=== PATIENT | female | born 1980 | race Caucasian/White ===

== ENCOUNTER 2017-05-10 08:52 | Emergency (ER) | payer OTHER, BC ==
[2017-05-10 09:11] VITALS: TEMP 98.6; BMI 21.9
--- NOTE | 2017-05-10 09:19 | PDOC ---
Attending Attestation - HPI HPI: 05/10/17 10:10 36 F with a PMH of Daisy, presents to the ED for palpitations, SOB, and chest pain/ pressure for 4 weeks. She states the episodes usually occur when she sleeps. She had an EKG, echo, and wore a holter 2 weeks ago that revealed PVCs and PACs. 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 She reports she had breast implants placed 3.5 years ago and removed 3 months ago. Pt denies F/C, n/v/d, leg swelling or tenderness, headache, or urinary complaints. - Physicial Exam PE: 05/10/17 10:10 GENERAL: Awake, alert, and fully oriented, in no acute distress HEAD: No signs of trauma EYES: PERRLA, EOMI, sclera anicteric, conjunctiva clear ENT: Auricles normal inspection, hearing grossly normal, nares patent, oropharynx clear without exudates. Moist mucosa NECK: Normal ROM, supple, no lymphadenopathy, JVD, or masses LUNGS: Breath sounds equal, clear to auscultation bilaterally. No wheezes, and no crackles HEART: Regular rate and rhythm, normal S1 and S2, no murmurs, rubs or gallops ABDOMEN: Soft, nontender, normoactive bowel sounds. No guarding, no rebound. No masses EXTREMITIES: Normal range of motion, no edema. No clubbing or cyanosis. No cords, erythema, or tenderness NEUROLOGICAL: Cranial nerves II through XII grossly intact. Normal speech, normal gait SKIN: Warm, Dry, normal turgor, no rashes or lesions noted. <Mel Chatterjee - Last Filed: 05/10/17 10:10> - Resident Resident Name: Rashaad Ayon - ED Attending Attestation I have performed the following: I have examined & evaluated the patient, The case was reviewed & discussed with the resident, I agree w/resident's findings & plan, Exceptions are as noted - Medical Decision Making 05/10/17 09:19 I, Dr. Aubrie Diallo, DO, attest that this document has been prepared under my direction and personally reviewed by me in its entirety. I further attest, that it accurately reflects all work, treatment, procedures and medical decision -making performed by me. 05/10/17 09:55 a/p: 36yo female with palpitations and sob -has worn a halter from [employer] -has had echo at [facility] -hx of pvcs and pacs -will check labs, ekg, cxr, thyroid -will monitor and reassess 05/10/17 11:46 thyroid function normal dimer negative labs reviewed without acute findings cxr clear ekg stable pending trop 05/10/17 12:14 trop negative <Aubrie Diallo - Last Filed: 05/10/17 12:15> Heart Score/ECG Review - ECG Intrepretation Comment:: 05/10/17 09:29 sinus at 69, nl axis, nl interval, t wave flattening diffusely, no acute st changes <Aubrie Diallo - Last Filed: 05/10/17 12:15>
--- NOTE | 2017-05-10 09:23 | PDOC ---
History of Present Illness - General Chief Complaint: Chest Pain Stated Complaint: CHEST PAIN Time Seen by Provider: 05/10/17 09:16 - History of Present Illness Initial Comments: 05/10/17 09:21 36 yo F with h/o Hashimotos thyroiditis who presents with chest pain. Patient reports epigastria and left sided chest pain this AM, while sleeping. Reports pressure like chest pain, palpitations, and SOB ( now resolved). Denies Joiner. Ongoing symptoms for the past month .Recent 2 week Holter monitor test negative. Denies N/V, F/C, cough, wheezing, hemoptysis, abdominal pain, urinary complaints, diarrhea, lightheadedness, leg swelling, LOC, weakness. Recently had breast implant removal ( 02/21). Denies cardiac history, h/o PE/DVT, recent immobilization or trauma, hypercoagualble disorder. Past History - Past Medical History Allergies/Adverse Reactions: Allergies Allergy/AdvReac Type Severity Reaction Status Date / Time No Known Allergies Allergy Verified 05/10/17 09:01 CVA: No COPD: No Thyroid Disease: Yes (hx Zaida) - Immunization History Immunization Up to Date: Yes - Suicide/Smoking/Psychosocial Hx Smoking History: Never smoked Have you smoked in the past 12 months: No Information on smoking cessation initiated: No Hx Alcohol Use: No Drug/Substance Use Hx: No Substance Use Type: None Review of Systems - Review of Systems Comments:: 05/10/17 09:20 GENERAL/CONSTITUTIONAL: No fever or chills. No weakness. HEAD, EYES, EARS, NOSE AND THROAT: No change in vision. No ear pain or discharge. No sore throat.- CARDIOVASCULAR: + chest pain and shortness of breath RESPIRATORY: No cough, wheezing, or hemoptysis. GASTROINTESTINAL: No nausea, vomiting, diarrhea or constipation. GENITOURINARY: No dysuria, frequency, or change in urination. MUSCULOSKELETAL: No joint or muscle swelling or pain. No neck or back pain. SKIN: No rash NEUROLOGIC: No headache, vertigo, loss of consciousness, or change in strength/ sensation. ENDOCRINE: No increased thirst. No abnormal weight change HEMATOLOGIC/LYMPHATIC: No anemia, easy bleeding, or history of blood clots. ALLERGIC/IMMUNOLOGIC: No hives or skin allergy. *Physical Exam - Vital Signs Last Vital Signs Temp Pulse Resp BP Pulse Ox 98.6 F 71 17 102/67 100 05/10/17 09:01 05/10/17 09:01 05/10/17 09:01 05/10/17 09:01 05/10/17 09:01 - Physical Exam Comments: 05/10/17 09:20 GENERAL: Awake, alert, and fully oriented, in no acute distress HEAD: No signs of trauma, normocephalic, atraumatic EYES: PERRLA, EOMI, sclera anicteric, conjunctiva clear ENT: Hearing grossly normal, nares patent, oropharynx clear without exudates. Moist mucosa NECK: Normal ROM,no JVD, or masses LUNGS: No distress, speaks full sentences, clear to auscultation bilaterally HEART: Regular rate and rhythm, normal S1 and S2, no murmurs, rubs or gallops, peripheral pulses normal and equal bilaterally. ABDOMEN: Soft, epigastric ttp, normoactive bowel sounds. No guarding, no rebound. No masses. Neg CVA ttp. Neg suprapubic ttp. EXTREMITIES : Normal inspection, Normal range of motion, no edema. No clubbing or cyanosis. SKIN: Warm, Dry, normal turgor, no rashes or lesions noted. ED Treatment Course - LABORATORY CBC & Chemistry Diagram: 05/10/17 10:05 05/10/17 10:43 Medical Decision Making - Medical Decision Making 05/10/17 09:21 36 yo F with h/o Hashimotos thyroiditis who presents with acute onset of epigastria and left sided chest pain/pressure, SOB, and palpitations this AM, while sleeping.Denies N/V, F/C, cough, Joiner, wheezing, hemoptysis, abdominal pain , urinary complaints, diarrhea, lightheadedness, leg swelling, LOC, weakness. Recent 2 week Holter monitor and echo test negative. Recently had breast implant removal ( 02/21). Denies cardiac history, h/o PE/DVT, recent immobilization or trauma, hypercoagualble disorder. Although low risk wellls criteria, will consider PE in setting of recent surgery ( 03/02). Will also consider thyrotoxicosis given h/o Hashimotors and clinical presentation. ACS/HI r/o. ED Course: CBC, CMP, Lipase, Cardiac Profile, TSH, Free T4, serum preg UA EKG, CXR EKG: NSR with absent TASHIA, STD, or TWI. Normal interval duration. 05/10/17 11:01 CBC: Unremarkable BHCG: Neg D-Dimer: 393 05/10/17 11:10 CXR: No acute chest pathology. 05/10/17 11:49 CBC: Unremarkable Trop: Neg Pt. is stable for d/c with return precautions. Advised to f/u with PMD. *DC/Admit/Observation/Transfer Diagnosis at time of Disposition: Atypical chest pain - Discharge Dispostion Condition at time of disposition: Stable - Referrals - Patient Instructions Printed Discharge Instructions: DI for Atypical Chest Pain Additional Instructions: Please return to the emergency department with any new or worsening symptoms or concerns. Please follow up with your primary care physician within 24-72 hours. - Post Discharge Activity - Attestations Physician Attestion: 05/10/17 09:22 I attest to the information provided in this note.
[2017-05-10 10:17] LABS: BASO % 0.7 % (0-2.0); EOS % 1.8 % (0-4.5); HEMATOCRIT 41.1 % (32.4-45.2); HEMOGLOBIN 13.4 GM/dL (10.7-15.3); LYMPH % 17.9 % (8-40); MCH 27.6 pg (25.7-33.7); MCHC 32.6 g/dl (32.0-36.0); MEAN CELL VOLUME 84.6 fl (80-96); MEAN PLT VOLUME 7.9 fl (7.5-11.1); MONO % 6.6 % (3.8-10.2); PLATELET COUNT 212 K/MM3 (134-434); RBC 4.86 M/mm3 (3.60-5.2); RDW 14.5 % (11.6-15.6); WHITE BLOOD COUNT 5.3 K/mm3 (4.0-10.0)
[2017-05-10 11:43] LABS: ALBUMIN 4.1 g/dl (3.4-5.0); ALK PHOS 70 U/L (45-117); ANION GAP 6 (8-16); BILIRUBIN,TOTAL 0.4 mg/dL (0.2-1.0); BLOOD UREA NITROGEN 12 mg/dL (7-18); CALCIUM 8.7 mg/dL (8.5-10.1); CHLORIDE 106 mmol/L (98-107); CO2 29 mmol/L (21-32); CREATININE 0.8 mg/dL (0.55-1.02); GLUCOSE,RANDOM 95 mg/dL (74-106); POTASSIUM 3.9 mmol/L (3.5-5.1); SGOT/AST 11 U/L (15-37); SGPT/ALT 15 U/L (12-78); SODIUM 141 mmol/L (136-145); TOT PROT 7.3 g/dl (6.4-8.2)
[2017-05-10 12:32] VITALS: BP 122/78; PULSE 78
--- NOTE | 2017-05-11 12:40 | EKG ---
Test Reason : Blood Pressure : / mmHG Vent. Rate : 069 BPM Atrial Rate : 069 BPM P-R Int : 130 ms QRS Dur : 104 ms QT Int : 420 ms P-R-T Axes : 060 005 012 degrees QTc Int : 450 ms NORMAL SINUS RHYTHM INCOMPLETE RIGHT BUNDLE BRANCH BLOCK BORDERLINE ECG NO PREVIOUS ECGS AVAILABLE BASELINE ARTIFACT Confirmed by ANDREW CASTANO, ALEJO ([id number]) on 05/11/2017 12:39:49 PM Referred By: Confirmed By:ALEJO MORALES MD
== END 2017-05-10 12:32 | disposition home or self-care (01) ==
LOC: JER 08:52
DX: R07.89 Other chest pain (principal); E06.3 Autoimmune thyroiditis
CPT/HCPCS: 36415; 71045-TC; 80053; 82550; 84439; 84443; 84484; 84703; 85025; 85379; 93005; 93010; 99284-25

== ENCOUNTER 2017-05-28 01:42 | Emergency (ER) | payer OTHER, BC ==
[2017-05-28 03:08] VITALS: BMI 21.9
--- NOTE | 2017-05-28 03:14 | PDOC ---
History of Present Illness - General History Source: Patient Exam Limitations: No Limitations - History of Present Illness Initial Comments: 05/28/17 03:30 The patient is a 36 year old female, with a significant past medical history of hashimotos disease (TFTs normalized for a long time), who presents to the emergency department with palpitations for one month with 3 days of right arm swelling. The patient states she is being followed by cardiologists in [place] and reports she has been wearing a holter monitor since the onset of palpitations. She states the palpitations occur while at rest, as well as, when she is walking around. She states she feels a heaviness to her right arm and a scattered swollen sensation, most prominent to her right elbow. Secondarily, the patient reports an unintentional 16 lb weight loss over the past 3 weeks. The patient denies recent travels or sick contacts. The patient denies use of oral contraceptives. The patient denies chest pain, shortness of breath, headache and dizziness. The patient denies fever, chills, nausea, vomit, diarrhea and constipation. The patient denies dysuria, frequency, urgency and hematuria. Allergies: NKDA <Bridget Avila - Last Filed: 05/28/17 05:47> <Nery Caceres - Last Filed: 05/28/17 10:42> <[employer] Sterling - Last Filed: 05/28/17 13:00> - General History Source: Patient <Daniel Price - Last Filed: 05/28/17 19:23> - General Chief Complaint: Pain Stated Complaint: R ARM PAIN Time Seen by Provider: 05/28/17 03:09 Past History <Bridget Avila - Last Filed: 05/28/17 05:47> <Nery Caceres - Last Filed: 05/28/17 10:42> <[employer]upo Sterling - Last Filed: 05/28/17 13:00> - Past Medical History CVA: No COPD: No Thyroid Disease: Yes (hx Zaida) - Immunization History Immunization Up to Date: Yes - Suicide/Smoking/Psychosocial Hx Smoking History: Never smoked Have you smoked in the past 12 months: No Information on smoking cessation initiated: No Hx Alcohol Use: No Drug/Substance Use Hx: No Substance Use Type: None <Daniel Price - Last Filed: 05/28/17 19:23> - Past Medical History Allergies/Adverse Reactions: Allergies Allergy/AdvReac Type Severity Reaction Status Date / Time No Known Allergies Allergy Verified 05/28/17 03:04 Home Medications: Ambulatory Orders levoFLOXacin [Levaquin -] 500 mg PO DAILY #7 tablet 05/28/17 Review of Systems - Review of Systems Able to Perform ROS?: Yes Comments:: 05/28/17 03:30 CONSTITUTIONAL: Absent: fever, chills, diaphoresis, generalized weakness, malaise, loss of appetite HEENT: Absent: rhinorrhea, nasal congestion, throat pain, throat swelling, difficulty swallowing, mouth swelling, ear pain, eye pain, visual Changes CARDIOVASCULAR: (+) palpitations,Absent: chest pain, syncope, irregular heart rate, lightheadedness, peripheral edema RESPIRATORY: Absent: cough, shortness of breath, dyspnea with exertion, orthopnea, wheezing, stridor, hemoptysis GASTROINTESTINAL: Absent: abdominal pain, abdominal distension, nausea, vomiting, diarrhea, constipation, melena, hematochezia GENITOURINARY: Absent: dysuria, frequency, urgency, hesitancy, hematuria, flank pain, genital pain MUSCULOSKELETAL: (+) right elbow and forearm swelling. Absent: myalgia, arthralgia, SKIN: Absent: rash, itching, pallor HEMATOLOGIC/IMMUNOLOGIC: Absent: easy bleeding, easy bruising, lymphadenopathy, frequent infections ENDOCRINE: Absent: unexplained weight gain, unexplained weight loss, heat intolerance, cold intolerance NEUROLOGIC: Absent: headache, focal weakness or paresthesias, dizziness, unsteady gait, seizure, mental status changes, bladder or bowel incontinence PSYCHIATRIC: Absent: anxiety, depression, suicidal or homicidal ideation, hallucinations. <Bridget Avila - Last Filed: 05/28/17 05:47> *Physical Exam - Vital Signs Last Vital Signs Temp Pulse Resp BP Pulse Ox 98.4 F 79 20 112/66 100 05/28/17 03:05 05/28/17 03:05 05/28/17 03:05 05/28/17 03:05 05/28/17 03:05 - Physical Exam Comments: 05/28/17 03:30 GENERAL: Well developed, well nourished. Awake and alert. No acute distress. HEENT: Normocephalic, atraumatic. PERRLA, EOMI. No conjunctival pallor. Sclera are non- icteric. Moist mucous membranes. Oropharynx is clear. NECK: Supple. Full ROM. No JVD. Carotid pulses 2+ and symmetric, without bruits. No thyromegaly. No lymphadenopathy. CARDIOVASCULAR: Regular rate and rhythm. No murmurs, rubs, or gallops. Distal pulses are 2+ and symmetric. PULMONARY: No evidence of respiratory distress. Lungs clear to auscultation bilaterally. No wheezing, rales or rhonchi. ABDOMINAL: Soft. Non-tender. Non-distended. No rebound or guarding. No organomegaly. Normoactive bowel sounds. MUSCULOSKELETAL Normal range of motion at all joints. No bony deformities or tenderness. No CVA tenderness. EXTREMITIES: (+) Minimal swelling to right elbow. Very mild swelling to medial aspect of right forearm. No erythema, increased warmth or signs of cellulitis. No cyanosis. No clubbing. No calf tenderness. SKIN: Warm and dry. Normal capillary refill. No rashes. No jaundice. NEUROLOGICAL: Alert, awake, appropriate. Cranial nerves 2-12 intact. Normoreflexic in the upper and lower extremities. Normal speech. Toes are down-going bilaterally. Gait is normal without ataxia. PSYCHIATRIC: Cooperative. Good eye contact. Appropriate mood and affect. <Bridget Avila - Last Filed: 05/28/17 05:47> - Vital Signs Last Vital Signs Temp Pulse Resp BP Pulse Ox 98.2 F 87 18 125/69 98 05/28/17 08:30 05/28/17 08:30 05/28/17 08:30 05/28/17 08:30 05/28/17 08:30 <Nery Caceres - Last Filed: 05/28/17 10:42> - Vital Signs Last Vital Signs Temp Pulse Resp BP Pulse Ox 98.4 F 79 20 112/66 100 05/28/17 03:05 05/28/17 03:05 05/28/17 03:05 05/28/17 03:05 05/28/17 03:05 <Grupo Sterling - Last Filed: 05/28/17 13:00> - Vital Signs Last Vital Signs Temp Pulse Resp BP Pulse Ox 98.4 F 79 20 112/66 100 05/28/17 03:05 05/28/17 03:05 05/28/17 03:05 05/28/17 03:05 05/28/17 03:05 <Daniel Price - Last Filed: 05/28/17 19:23> Heart Score/ECG Review - ECG Intrepretation Comment:: 05/28/17 03:31 EKG was read by Dr. Price at 2:28 Impression: Normal sinus rhythm. Possible left atrial enlargement. Left axis deviation. Pulmonary disease pattern. <Bridget Avila - Last Filed: 05/28/17 05:47> ED Treatment Course - LABORATORY CBC & Chemistry Diagram: 05/28/17 03:30 05/28/17 03:30 - RADIOLOGY Radiograph Interpretation: DATE OF SERVICE: 2017-05-28 05:08:03 IMAGES: 684 EXAM: CT angiogram chest with contrast and 3-D angiographic reconstructions HISTORY: 36 year old female evaluate for pulmonary embolism. CONTRAST: 100.4 mL Omnipaque 350 intravenous contrast TECHNIQUE: Following IV contrast administration thin axial images were obtained through the chest for pulmonary artery evaluation by pulmonary embolism protocol with images transmitted to a remote workstation for 3-D post-processing included coronal and sagittal reformatted 3- D MIP images which were permanently stored in the patient medical record PACS. COMPARISON: None. FINDINGS: No large central pulmonary embolism. Evaluation of the distal segmental branches are limited by artifact. No aortic aneurysm or dissection. Heart size within normal limits. Basilar atelectasis. No pleural effusion. No pneumothorax. Limited evaluation upper abdomen appears unremarkable. Bones appear unremarkable. IMPRESSION: No large central pulmonary embolism. Wu Hanks MD 05/28/2017 05:43 EST <Bridget Avila - Last Filed: 05/28/17 05:47> - LABORATORY CBC & Chemistry Diagram: 05/28/17 03:30 05/28/17 03:30 - ADDITIONAL ORDERS Additional order review: Laboratory Results 05/28/17 05/28/17 05/28/17 03:44 03:30 03:30 PT with INR INR D-Dimer Sodium Potassium Chloride Carbon Dioxide Anion Gap BUN Creatinine Creat Clearance w eGFR Random Glucose Calcium Total Bilirubin AST ALT Alkaline Phosphatase Creatine Kinase Troponin I Total Protein Albumin TSH 2.23 Serum , Qual Negative Urine Color Yellow Urine Appearance Slcloudy Urine pH 5.0 Ur Specific [place] 1.028 Urine Protein Negative Urine Glucose (UA) Negative Urine Ketones Trace H Urine Blood Negative Urine Nitrite Negative Urine Bilirubin Negative Urine Urobilinogen Negative Ur Leukocyte Esterase 3+ H Urine WBC (Auto) 40 Urine RBC (Auto) 33 Ur Epithelial Cells Few Urine Mucus Many 05/28/17 05/28/17 03:30 03:30 PT with INR 12.30 H INR 1.09 D-Dimer 568 H Sodium 138 Potassium 3.7 Chloride 106 Carbon Dioxide 25 Anion Gap 7 L BUN 17 Creatinine 0.7 Creat Clearance w eGFR > 60 Random Glucose 90 Calcium 8.8 Total Bilirubin 0.4 AST 9 L ALT 12 Alkaline Phosphatase 67 Creatine Kinase 37 Troponin I < 0.02 Total Protein 7.4 Albumin 4.3 TSH Serum , Qual Urine Color Urine Appearance Urine pH Ur Specific [place] Urine Protein Urine Glucose (UA) Urine Ketones Urine Blood Urine Nitrite Urine Bilirubin Urine Urobilinogen Ur Leukocyte Esterase Urine WBC (Auto) Urine RBC (Auto) Ur Epithelial Cells Urine Mucus 05/28/17 03:30 RBC 4.69 MCV 84.6 MCHC 32.6 RDW 14.3 MPV 7.8 Neutrophils % 67.5 Lymphocytes % 21.8 D Monocytes % 8.3 Eosinophils % 1.9 Basophils % 0.5 - Medications Given in the ED: ED Medications Discontinued Medications Generic Name Dose Route Start Last Admin Trade Name Tomq PRN Reason Stop Dose Admin Sodium Chloride 1,000 mls @ 1,000 mls/hr 05/28/17 05:54 05/28/17 06:18 Normal Saline - IV 05/28/17 06:53 1,000 mls/hr ASDIR STA Administration Levofloxacin 500 mg 05/28/17 05:53 05/28/17 06:29 Levaquin - PO 05/28/17 05:54 Not Given ONCE ONE <Nery Caceres - Last Filed: 05/28/17 10:42> - LABORATORY CBC & Chemistry Diagram: 05/28/17 03:30 05/28/17 03:30 - ADDITIONAL ORDERS Additional order review: Laboratory Results 05/28/17 05/28/17 05/28/17 03:44 03:30 03:30 PT with INR INR D-Dimer Sodium Potassium Chloride Carbon Dioxide Anion Gap BUN Creatinine Creat Clearance w eGFR Random Glucose Calcium Total Bilirubin AST ALT Alkaline Phosphatase Creatine Kinase Troponin I Total Protein Albumin TSH 2.23 Serum , Qual Negative Urine Color Yellow Urine Appearance Slcloudy Urine pH 5.0 Ur Specific [place] 1.028 Urine Protein Negative Urine Glucose (UA) Negative Urine Ketones Trace H Urine Blood Negative Urine Nitrite Negative Urine Bilirubin Negative Urine Urobilinogen Negative Ur Leukocyte Esterase 3+ H Urine WBC (Auto) 40 Urine RBC (Auto) 33 Ur Epithelial Cells Few Urine Mucus Many 05/28/17 05/28/17 03:30 03:30 PT with INR 12.30 H INR 1.09 D-Dimer 568 H Sodium 138 Potassium 3.7 Chloride 106 Carbon Dioxide 25 Anion Gap 7 L BUN 17 Creatinine 0.7 Creat Clearance w eGFR > 60 Random Glucose 90 Calcium 8.8 Total Bilirubin 0.4 AST 9 L ALT 12 Alkaline Phosphatase 67 Creatine Kinase 37 Troponin I < 0.02 Total Protein 7.4 Albumin 4.3 TSH Serum , Qual Urine Color Urine Appearance Urine pH Ur Specific [place] Urine Protein Urine Glucose (UA) Urine Ketones Urine Blood Urine Nitrite Urine Bilirubin Urine Urobilinogen Ur Leukocyte Esterase Urine WBC (Auto) Urine RBC (Auto) Ur Epithelial Cells Urine Mucus 05/28/17 03:30 RBC 4.69 MCV 84.6 MCHC 32.6 RDW 14.3 MPV 7.8 Neutrophils % 67.5 Lymphocytes % 21.8 D Monocytes % 8.3 Eosinophils % 1.9 Basophils % 0.5 - Medications Given in the ED: ED Medications Discontinued Medications Generic Name Dose Route Start Last Admin Trade Name Freq PRN Reason Stop Dose Admin Sodium Chloride 1,000 mls @ 1,000 mls/hr 05/28/17 05:54 05/28/17 06:18 Normal Saline - IV 05/28/17 06:53 1,000 mls/hr ASDIR STA Administration Levofloxacin 500 mg 05/28/17 05:53 05/28/17 06:29 Levaquin - PO 05/28/17 05:54 Not Given ONCE ONE <Grupo Sterling - Last Filed: 05/28/17 13:00> - LABORATORY CBC & Chemistry Diagram: 05/28/17 03:30 05/28/17 03:30 <Daniel Price - Last Filed: 05/28/17 19:23> Medical Decision Making - Medical Decision Making 05/28/17 10:23 Patient endorsed to me to follow-up right upper extremity Doppler ultrasound. There is no evidence of DVT. Patient followed up by cardiology with a Holter monitor in place. Urinalysis reveals pyuria with presence of red cells. Levaquin has been prescribed. Will discharge with outpatient follow-up. 05/28/17 10:41 pt c/o cp. will obtain ekg, repeat cardiac profile 05/28/17 13:00 Repeat EKG shows nonspecific T-wave changes probably due to lead placement unlikely related to ACS. Second set of cardiac enzymes is within normal limit. I do not suspect acute myocardial infarction at this time. Case discussed with Dr. Dakota espinosa of cardiology. Patient's heart score is 0 at this time. Patient can be discharged for outpatient follow-up. <Grupo Sterling - Last Filed: 05/28/17 13:00> - Medical Decision Making 05/28/17 19:23 Dr. Price: The scribe's documentation has been prepared under my direction and personally reviewed by me in its entirery. I confirm that the note above accurately reflects all work, treatment, procedures, and medical decision making performed by me. <Daniel Price - Last Filed: 05/28/17 19:23> *DC/Admit/Observation/Transfer - Attestations Scribe Attestion: 05/28/17 03:31 Documentation prepared by Bridget Avila, acting as medical scientist for Daniel Price DO. <Bridget Avila - Last Filed: 05/28/17 05:47> <Nery Caceres - Last Filed: 05/28/17 10:42> <[employer] Sterling - Last Filed: 05/28/17 13:00> <Daniel Price - Last Filed: 05/28/17 19:23> Diagnosis at time of Disposition: Atypical chest pain Urinary tract infection Qualifiers: Urinary tract infection type: acute cystitis Hematuria presence: with hematuria Qualified Code(s): N30.01 - Acute cystitis with hematuria Arm pain Qualifiers: Laterality: right Qualified Code(s): M79.601 - Pain in right arm - Discharge Dispostion Disposition: HOME Condition at time of disposition: Stable - Prescriptions Prescriptions: levoFLOXacin [Levaquin -] 500 mg PO DAILY #7 tablet - Referrals Referrals: ON STAFF,NOT [Primary Care Provider] - pmd, one week [Other] - Patient Instructions Printed Discharge Instructions: DI for Urinary Tract Infection (UTI), DI for Atypical Chest Pain, DI for Arm Pain - Post Discharge Activity
[2017-05-28 03:37] LABS: BASO % 0.5 % (0-2.0); EOS % 1.9 % (0-4.5); HEMATOCRIT 39.6 % (32.4-45.2); HEMOGLOBIN 12.9 GM/dL (10.7-15.3); LYMPH % 21.8 % (8-40); MCH 27.6 pg (25.7-33.7); MCHC 32.6 g/dl (32.0-36.0); MEAN CELL VOLUME 84.6 fl (80-96); MEAN PLT VOLUME 7.8 fl (7.5-11.1); MONO % 8.3 % (3.8-10.2); NEUT % 67.5 % (42.8-82.8); PLATELET COUNT 183 K/MM3 (134-434); RBC 4.69 M/mm3 (3.60-5.2); RDW 14.3 % (11.6-15.6); WHITE BLOOD COUNT 5.5 K/mm3 (4.0-10.0)
[2017-05-28 03:49] LABS: URINE APPEARANCE SLCLOUDY; URINE BILIRUBIN NEGATIVE (NEGATIVE); URINE BLOOD NEGATIVE (NEGATIVE); URINE COLOR YELLOW; URINE GLUCOSE (UA) NEGATIVE (NEGATIVE); URINE KETONE TRACE (NEGATIVE); URINE NITRITE NEGATIVE (NEGATIVE); URINE PROTEIN NEGATIVE (NEGATIVE); URINE UROBILINOGEN NEGATIVE mg/dL (0.2-1.0)
[2017-05-28 03:50] LABS: INR 1.09 (0.82-1.09); PROTHROMBIN TIME (PATIENT) 12.3 SEC (9.98-11.88)
[2017-05-28 03:50] LABS: URINE LEUK ESTERASE 3+ (NEGATIVE)
[2017-05-28 03:52] LABS: EPI CELLS FEW /HPF (FEW); URINE MUCUS MANY
[2017-05-28 04:01] LABS: ALBUMIN 4.3 g/dl (3.4-5.0); ANION GAP 7 (8-16); BILIRUBIN,TOTAL 0.4 mg/dL (0.2-1.0); BLOOD UREA NITROGEN 17 mg/dL (7-18); CALCIUM 8.8 mg/dL (8.5-10.1); CHLORIDE 106 mmol/L (98-107); CO2 25 mmol/L (21-32); CREATININE 0.7 mg/dL (0.55-1.02); GLUCOSE,RANDOM 90 mg/dL (74-106); POTASSIUM 3.7 mmol/L (3.5-5.1); SGOT/AST 9 U/L (15-37); SGPT/ALT 12 U/L (12-78); SODIUM 138 mmol/L (136-145); TOT PROT 7.4 g/dl (6.4-8.2)
[2017-05-28 04:04] LABS: ALK PHOS 67 U/L (45-117)
[2017-05-28] MEDS ORDERED: SODIUM CHLORIDE 1,000 ML IV STA (05:54)
[2017-05-28 10:32] VITALS: BP 125/69; PULSE 87; TEMP 98.2
[2017-05-28] MEDS ORDERED: KETOROLAC TROMETHAMINE 30 MG/1 ML VIAL IVPUSH ONE (10:39)
[2017-05-28] MEDS ORDERED: RANITIDINE HCL 150 MG TABLET (FP) PO ONE (10:40)
[2017-05-28] MEDS ORDERED: KETOROLAC TROMETHAMINE 30 MG/1 ML VIAL ONE (10:53)
[2017-05-28] MEDS ORDERED: RANITIDINE HCL 150 MG TABLET (FP) ONE (10:53)
--- NOTE | 2017-05-28 16:28 | EKG ---
Test Reason : Blood Pressure : / mmHG Vent. Rate : 078 BPM Atrial Rate : 078 BPM P-R Int : 140 ms QRS Dur : 088 ms QT Int : 370 ms P-R-T Axes : 066 -46 031 degrees QTc Int : 421 ms NORMAL SINUS RHYTHM POSSIBLE LEFT ATRIAL ENLARGEMENT LEFT AXIS DEVIATION PULMONARY DISEASE PATTERN ABNORMAL ECG WHEN COMPARED WITH ECG OF 10-MAY-2017 08:58, INCOMPLETE RIGHT BUNDLE BRANCH BLOCK IS NO LONGER PRESENT NON-SPECIFIC CHANGE IN ST SEGMENT IN ANTERIOR LEADS Confirmed by JAMI SWAN MD ([id number]) on 05/28/2017 4:27:59 PM Referred By: Confirmed By:JAMI SWAN MD
--- NOTE | 2017-05-29 16:10 | EKG ---
Test Reason : Blood Pressure : / mmHG Vent. Rate : 086 BPM Atrial Rate : 086 BPM P-R Int : 142 ms QRS Dur : 094 ms QT Int : 344 ms P-R-T Axes : 073 005 013 degrees QTc Int : 411 ms NORMAL SINUS RHYTHM POSSIBLE LEFT ATRIAL ENLARGEMENT NONSPECIFIC T WAVE ABNORMALITY ABNORMAL ECG WHEN COMPARED WITH ECG OF 28-MAY-2017 02:28, QRS AXIS SHIFTED RIGHT NONSPECIFIC T WAVE ABNORMALITY, WORSE IN ANTERIOR LEADS Confirmed by LENORA CASTANO, BRANDON ([id number]) on 05/29/2017 4:09:52 PM Referred By: Confirmed By:BRANDON COOLEY MD
== END 2017-05-28 13:09 | disposition home or self-care (01) ==
LOC: JER 01:42
PROC: 3E0337Z Introduction of Electrolytic and Water Balance Substance into Peripheral Vein, Percutaneous Approach (ICD-10-PCS; principal; 2017-05-28)
PROC: 3E0333Z Introduction of Anti-inflammatory into Peripheral Vein, Percutaneous Approach (ICD-10-PCS; 2017-05-28)
DX: R07.89 Other chest pain (principal); N30.01 Acute cystitis with hematuria
CPT/HCPCS: 36415; 71275-TC; 80053; 81003; 81015; 82550; 84436; 84439; 84443; 84484; 84703; 85025; 85379; 85610; 93005; 93010; 93971; 99284-25

== ENCOUNTER 2017-06-26 12:44 | Emergency (ER) | payer OTHER, BC ==
[2017-06-26 12:56] VITALS: TEMP 98.5; BMI 21.1
--- NOTE | 2017-06-26 13:25 | PDOC ---
History of Present Illness <Sommer Wolf - Last Filed: 06/26/17 15:57> - History of Present Illness Initial Comments: 36 year old female with PMH of hashimotos thyroiditis presenting with sudden onset burning bilateral lung pain and a dry cough for the past week. Patient states that one week ago she had sudden onset of this burning sensation that is worse with deep inhalation and bilateral. She also admits to a dry cough over the past few weeks. 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 During our interview she was actively asking for a d-dimer and kept insisting that she had a blood clot in her right arm and lungs. She also has had general She had a RUE Doppler and a CTA one month prior in our system that were negative for clot burden. Denied fevers, chills, nausea, vomiting, diarrhea, constipation, or other sick symptoms. 06/26/17 16:23 <Melva Powers - Last Filed: 06/26/17 19:17> - General Chief Complaint: Lightheaded Stated Complaint: CHEST PAIN Time Seen by Provider: 06/26/17 13:25 Past History <Sommer Wolf - Last Filed: 06/26/17 15:57> - Past Medical History CVA: No COPD: No Thyroid Disease: Yes (hx Zaida) - Immunization History Immunization Up to Date: Yes - Suicide/Smoking/Psychosocial Hx Smoking History: Never smoked Have you smoked in the past 12 months: No Hx Alcohol Use: No Drug/Substance Use Hx: No Substance Use Type: None <Melva Powers - Last Filed: 06/26/17 19:17> - Past Medical History Allergies/Adverse Reactions: Allergies Allergy/AdvReac Type Severity Reaction Status Date / Time sertraline [From Zoloft] Allergy Intermediate Difficulty Verified 06/26/17 14:15 Breathing Home Medications: Ambulatory Orders Escitalopram Oxalate [Lexapro -] 5 mg PO DAILY 06/26/17 Levofloxacin [Levaquin] 750 mg PO DAILY #5 tablet 06/26/17 Lorazepam [Ativan] 0.5 mg PO BID 06/26/17 Review of Systems - Review of Systems Constitutional: No: Chills, Diaphoresis, Fever HEENTM: No: Blurred Vision, Double Vision Respiratory: No: Cough, Shortness of Breath Cardiac (ROS): No: Chest Pain ABD/GI: No: See HPI, Diarrhea, Nausea, Vomiting : No: Dysuria, Discharge, Frequency Musculoskeletal: No: Back Pain, Muscle Pain Integumentary: No: Flushing, Lesions, Lumps Neurological: No: Headache, Numbness, Paresthesia Psychiatric: Yes: Anxiety, Depression <PriyaSharijonny - Last Filed: 06/26/17 19:17> *Physical Exam - Vital Signs <Sommer Wolf - Last Filed: 06/26/17 15:57> - Vital Signs Last Vital Signs Temp Pulse Resp BP Pulse Ox 98.5 F 88 19 105/67 100 06/26/17 12:53 06/26/17 12:53 06/26/17 12:53 06/26/17 12:53 06/26/17 12:53 - Physical Exam General Appearance: Yes: Nourished, Appropriately Dressed. No: Apparent Distress (No apparent distres sbut appears fatigued and a bit anxious) HEENT: positive: EOMI, LILLI, Normal ENT Inspection, Normal Voice Neck: positive: Trachea midline, Normal Thyroid, Supple. negative: Tender, Rigid Respiratory/Chest: positive: Lungs Clear, Normal Breath Sounds. negative: Chest Tender, Respiratory Distress Cardiovascular: positive: Regular Rhythm, Regular Rate Gastrointestinal/Abdominal: positive: Normal Bowel Sounds, Flat, Soft. negative : Tender Musculoskeletal: positive: Normal Inspection. negative: Decreased Range of Motion Extremity: positive: Normal Capillary Refill, Normal Inspection, Normal Range of Motion. negative: Tender Integumentary: positive: Normal Color, Dry, Warm Neurologic: positive: Fully Oriented, Alert, Normal Mood/Affect, Normal Response , Motor Strength 5/5, Other (Continuously tapping her right foot with a very anxious appearance.). 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 <PriyaLeidaeleuterio - Last Filed: 06/26/17 19:17> ED Treatment Course - LABORATORY CBC & Chemistry Diagram: 06/26/17 15:06 06/26/17 15:06 - ADDITIONAL ORDERS Additional order review: 06/26/17 15:06 RBC 4.88 MCV 85.0 MCHC 33.6 RDW 14.4 MPV 7.9 Neutrophils % 73.7 Lymphocytes % 16.1 D Monocytes % 8.6 Eosinophils % 1.1 Basophils % 0.5 <MaryannSommer - Last Filed: 06/26/17 15:57> - LABORATORY CBC & Chemistry Diagram: 06/26/17 15:06 06/26/17 15:06 <PriyaSharijonny - Last Filed: 06/26/17 19:17> Medical Decision Making - Medical Decision Making 36 year old female with non specific chest pains and history of some hashimotos with questionable systemic inflammatory issue and positive d-dimer in the past. Labs WNL. UA pending. 06/26/17 17:40 CTA negative for PE and UA demonstrating infection. Coincidentally, she had an infection of her urine in the past but did not take her Levaquin because her PCP told her that her urine was clean. Will give her one Levaquin 750 and will DC her with 5 days of it. 06/26/17 18:57 <Melva Powers - Last Filed: 06/26/17 19:17> *DC/Admit/Observation/Transfer <Maryann,Sommer - Last Filed: 06/26/17 15:57> - Discharge Dispostion Admit: No <PriyaSharijonny - Last Filed: 06/26/17 19:17> Diagnosis at time of Disposition: UTI (urinary tract infection) Qualifiers: Urinary tract infection type: acute cystitis Hematuria presence: without hematuria Qualified Code(s): N30.00 - Acute cystitis without hematuria - Discharge Dispostion Disposition: HOME Condition at time of disposition: Improved - Prescriptions Prescriptions: Levofloxacin [Levaquin] 750 mg PO DAILY #5 tablet - Referrals Referrals: Gavino Sotomayor MD [Staff Physician] - - Patient Instructions Printed Discharge Instructions: DI for Urinary Tract Infection (UTI) Additional Instructions: You have a UTI and need to take your antibiotics. Please take them as prescribed. Please follow up with your PCP or the recommended PCP on our sheet ( Dr. Sotomayor) if you do not have one. Please return to the ED if you have any new or worsening symptoms. - Post Discharge Activity Forms/Work/School Notes: Back to Work
--- NOTE | 2017-06-26 13:28 | PDOC ---
Attending Attestation - HPI HPI: 06/26/17 15:56 06/26/17 15:49 The patient is a 36 year old female with a significant PMH of Zaida who presents to the emergency department with nonspecific chest pain that began approximately 1 week ago. The patient is describes her chest pain as a 'burning sensation in her lungs.' The patient states she took motrin with no relief. The patient reports an episode of SOB, lightheadedness, heart racing, and sweats this morning that has since resolved. The patient also endorses fatigue over the last few days. The patient denies headache, dizziness, fever, chills, nausea, vomit, diarrhea and constipation. Denies dysuria, frequency, urgency and hematuria. Allergies: NKA Past surgical history: None reported. Social history: No reported alcohol, drug, or cigarette use. <Sommer Wolf - Last Filed: 06/26/17 15:58> - Resident Resident Name: Melva Powers - ED Attending Attestation I have performed the following: I have examined & evaluated the patient, The case was reviewed & discussed with the resident, I agree w/resident's findings & plan, Exceptions are as noted - Physicial Exam PE: GENERAL: Awake, alert, and fully oriented, in no acute distress HEAD: No signs of trauma EYES: PERRLA, EOMI, sclera anicteric, conjunctiva clear ENT: Auricles normal inspection, hearing grossly normal, nares patent, oropharynx clear without exudates. Moist mucosa NECK: Normal ROM, supple, no lymphadenopathy, JVD, or masses LUNGS: Breath sounds equal, clear to auscultation bilaterally. No wheezes, and no crackles HEART: Regular rate and rhythm, normal S1 and S2, no murmurs, rubs or gallops ABDOMEN: Soft, nontender, normoactive bowel sounds. No guarding, no rebound. No masses EXTREMITIES: Normal range of motion, no edema. No clubbing or cyanosis. No cords, erythema, or tenderness NEUROLOGICAL: Cranial nerves II through XII grossly intact. Normal speech, normal gait SKIN: Warm, Dry, normal turgor, no rashes or lesions noted. - Medical Decision Making Pt currently in progress of diagnosis for possible autoimmune disease, presenting with cp. She notes that she has had to stop activity at times due to pain. Will obtain labs, CTA. <Ghislaine Perla - Last Filed: 06/27/17 20:57>
[2017-06-26 15:24] LABS: BASO % 0.5 % (0-2.0); EOS % 1.1 % (0-4.5); HEMATOCRIT 41.5 % (32.4-45.2); HEMOGLOBIN 13.9 GM/dL (10.7-15.3); LYMPH % 16.1 % (8-40); MCH 28.6 pg (25.7-33.7); MCHC 33.6 g/dl (32.0-36.0); MEAN PLT VOLUME 7.9 fl (7.5-11.1); MONO % 8.6 % (3.8-10.2); NEUT % 73.7 % (42.8-82.8); PLATELET COUNT 213 K/MM3 (134-434); RBC 4.88 M/mm3 (3.60-5.2); RDW 14.4 % (11.6-15.6); WHITE BLOOD COUNT 6.5 K/mm3 (4.0-10.0)
[2017-06-26 15:57] LABS: ALBUMIN 4.1 g/dl (3.4-5.0); ANION GAP 11 (8-16); BLOOD UREA NITROGEN 13 mg/dL (7-18); CALCIUM 8.7 mg/dL (8.5-10.1); CHLORIDE 105 mmol/L (98-107); CO2 25 mmol/L (21-32); CREATININE 0.7 mg/dL (0.55-1.02); GLUCOSE,RANDOM 80 mg/dL (74-106); POTASSIUM 3.8 mmol/L (3.5-5.1); SGOT/AST 10 U/L (15-37); SGPT/ALT 17 U/L (12-78); SODIUM 141 mmol/L (136-145)
[2017-06-26 16:03] LABS: ALK PHOS 66 U/L (45-117); BILIRUBIN,TOTAL 0.5 mg/dL (0.2-1.0); TOT PROT 7.3 g/dl (6.4-8.2)
[2017-06-26 17:31] LABS: URINE APPEARANCE CLOUDY; URINE BILIRUBIN NEGATIVE (NEGATIVE); URINE BLOOD 1+ (NEGATIVE); URINE COLOR YELLOW; URINE GLUCOSE (UA) NEGATIVE (NEGATIVE); URINE KETONE NEGATIVE (NEGATIVE); URINE NITRITE NEGATIVE (NEGATIVE)
[2017-06-26 17:40] LABS: URINE LEUK ESTERASE 3+ (NEGATIVE); URINE PROTEIN 1+ (NEGATIVE)
[2017-06-26 17:42] LABS: EPI CELLS MANY /HPF (FEW); URINE MUCUS MANY
[2017-06-26 19:44] VITALS: BP 110/62; PULSE 78
--- NOTE | 2017-06-29 21:58 | EKG ---
Test Reason : Blood Pressure : / mmHG Vent. Rate : 087 BPM Atrial Rate : 087 BPM P-R Int : 122 ms QRS Dur : 100 ms QT Int : 378 ms P-R-T Axes : 068 003 028 degrees QTc Int : 454 ms SINUS RHYTHM WITH FUSION COMPLEXES POSSIBLE LEFT ATRIAL ENLARGEMENT INCOMPLETE RIGHT BUNDLE BRANCH BLOCK BORDERLINE ECG Confirmed by SOTO EDGAR MD ([id number]) on 06/29/2017 9:58:06 PM Referred By: Confirmed By:SOTO EDGAR MD
== END 2017-06-26 19:44 | disposition home or self-care (01) ==
LOC: JER 12:44
DX: N30.00 Acute cystitis without hematuria (principal); E06.3 Autoimmune thyroiditis
CPT/HCPCS: 36415; 71275-TC; 80053; 81003; 81015; 82550; 84439; 84443; 84484; 84702; 84703; 85025; 93005; 93010; 99282-25

== ENCOUNTER 2017-07-08 08:27 | Emergency (ER) | payer OTHER, BC ==
[2017-07-08 08:40] VITALS: TEMP 98; BMI 21.1
--- NOTE | 2017-07-08 09:06 | PDOC ---
History of Present Illness - General Chief Complaint: Chest Pain Stated Complaint: CHEST PAIN, DIZZINESS Time Seen by Provider: 07/08/17 08:51 History Source: Patient Exam Limitations: No Limitations - History of Present Illness Initial Comments: 07/08/17 09:18 Patient is a 36-year-old female with past medical history of Zaida's disease , anxiety, who presents to the emergency department today complaining of chest pressure, dizziness and left lower leg pain. Patient states that she woke up this morning from sleep feeling chest pressure in her mid chest. She states that she tried to readjust her position to help with the pressure however it did not work. She states that she has also been feeling intermittent sharp pains throughout her chest. Patient states that she had a recent breast reduction approximately 3 months ago to remove previous implants. Patient also states that she's had left lower leg pain for the past week. She is tried taking Motrin with little relief. Patient denies recent travel, control use, smoking history. Patient also denies recent illness, difficulty breathing, shortness of breath, fevers, chills, palpitations, nausea, vomiting and diarrhea. Past History - Travel Traveled outside of the country in the last 30 days: No Close contact w/someone who was outside of country & ill: No - Past Medical History Allergies/Adverse Reactions: Allergies Allergy/AdvReac Type Severity Reaction Status Date / Time sertraline [From Zoloft] Allergy Intermediate Difficulty Verified 07/08/17 08:36 Breathing Home Medications: Ambulatory Orders Lorazepam [Ativan] 0.5 mg PO BID 06/26/17 CVA: No COPD: No Thyroid Disease: Yes (hx Zaida) - Immunization History Immunization Up to Date: Yes - Suicide/Smoking/Psychosocial Hx Smoking History: Never smoked Have you smoked in the past 12 months: No Hx Alcohol Use: No Drug/Substance Use Hx: No Substance Use Type: None Review of Systems - Review of Systems Able to Perform ROS?: Yes Comments:: 07/08/17 09:09 CONSTITUTIONAL: Absent: fever, chills, diaphoresis, generalized weakness, malaise, loss of appetite HEENT: Absent: rhinorrhea, nasal congestion, throat pain, throat swelling, difficulty swallowing, mouth swelling, ear pain, eye pain, visual Changes CARDIOVASCULAR: Present: chest pressure Absent: chest pain, loss of consciousness, palpitations , irregular heart rate, peripheral edema RESPIRATORY: Absent: cough, shortness of breath, dyspnea with exertion, orthopnea, wheezing, stridor, hemoptysis GASTROINTESTINAL: Absent: abdominal pain, abdominal distension, nausea, vomiting, diarrhea, constipation, melena, hematochezia GENITOURINARY: Absent: dysuria, frequency, urgency, hesitancy, hematuria, flank pain, genital pain MUSCULOSKELETAL: Present: LLE pain, calf pain Absent: myalgia, arthralgia, joint swelling SKIN: Absent: rash, itching, pallor HEMATOLOGIC/IMMUNOLOGIC: Absent: easy bleeding, easy bruising, lymphadenopathy, frequent infections ENDOCRINE: Absent: unexplained weight gain, unexplained weight loss, heat intolerance, cold intolerance NEUROLOGIC: Present: Dizziness Absent: headache, focal weakness or paresthesias, dizziness, unsteady gait, seizure, mental status changes, bladder or bowel incontinence PSYCHIATRIC: Absent: anxiety, depression, suicidal or homicidal ideation, hallucinations. Is the patient limited Pakistani proficient: No *Physical Exam - Vital Signs Last Vital Signs Temp Pulse Resp BP Pulse Ox 98 F 86 16 106/64 100 07/08/17 08:36 07/08/17 08:36 07/08/17 08:36 07/08/17 08:36 07/08/17 08:36 - Physical Exam Comments: 07/08/17 09:10 GENERAL: Well developed, well nourished. Awake and alert. No acute distress. Speaking in full sentences, laying in exam bed. HEENT: Normocephalic, atraumatic. PERRLA, EOMI. No conjunctival pallor. Sclera are non- icteric. Moist mucous membranes. Oropharynx is clear. NECK: Supple. Full ROM. No JVD. Carotid pulses 2+ and symmetric, without bruits. No thyromegaly. No lymphadenopathy. CARDIOVASCULAR: Regular rate and rhythm. TTP of sternal bone. No murmurs, rubs, or gallops. Distal pulses are 2+ and symmetric. PULMONARY: No evidence of respiratory distress. Lungs clear to auscultation bilaterally. No wheezing, rales or rhonchi. ABDOMINAL: Soft. Non-tender. Non-distended. No rebound or guarding. No organomegaly. Normoactive bowel sounds. MUSCULOSKELETAL Normal range of motion at all joints. No bony deformities or tenderness. No CVA tenderness. EXTREMITIES: TTP of the L superior calf. No cyanosis. No clubbing. No edema. SKIN: Warm and dry. Normal capillary refill. No rashes. No jaundice. NEUROLOGICAL: Alert, awake, appropriate. Cranial nerves 2-12 intact. No deficits to light touch and temperature in face, upper extremities and lower extremities. No motor deficits in the in face, upper extremities and lower extremities. Normoreflexic in the upper and lower extremities. Normal speech. Toes are down- going bilaterally. Gait is normal without ataxia. PSYCHIATRIC: Cooperative. Good eye contact. Appropriate mood and affect. ED Treatment Course - LABORATORY CBC & Chemistry Diagram: 07/08/17 09:10 07/08/17 09:10 Medical Decision Making - Medical Decision Making 07/08/17 09:19 Patient is a 36-year-old female with past medical history of Zaida's, anxiety, who presents emergency Department with 3-4 hours of chest pressure and one week of left lower leg pain. Chest pain is reproducible on exam with light palpation of the sternum. Less likely ACS however will rule out at this time. We 'll rule out DVT lower extremity. 1.labs 2.chest x-ray, EKG 3.DVT ultrasound left lower leg 4.reevaluate 07/08/17 09:32 *DC/Admit/Observation/Transfer Diagnosis at time of Disposition: Atypical chest pain - Discharge Dispostion Disposition: HOME Condition at time of disposition: Stable Admit: No - Referrals Referrals: Joselyn Sandoval MD [Primary Care Provider] - Rakesh iLma MD [Staff Physician] - Chiki Mohr MD [Staff Physician] - - Patient Instructions Printed Discharge Instructions: DI for Atypical Chest Pain Additional Instructions: Your cardiac workup was normal today. Your d-dimer level was also normal. Your ultrasound of your leg was negative for blood clots. Please keep a diary as to when you feel your palpitations. 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 A referral has been provided for you. You may need a Holter monitor again. Keep your follow-up with her surgeon as scheduled. Return to the emergency department if you have the palpitations, worsening chest pain, difficulty breathing, or have any changes in your symptoms. - Post Discharge Activity Forms/Work/School Notes: Back to Work
[2017-07-08] MEDS ORDERED: IBUPROFEN 400 MG TABLET (FP) PO ONE ×2 (09:08→09:39)
[2017-07-08 09:45] LABS: BASO % 0.6 % (0-2.0); HEMATOCRIT 37.2 % (32.4-45.2); HEMOGLOBIN 12.7 GM/dL (10.7-15.3); LYMPH % 19.4 % (8-40); MCH 29.3 pg (25.7-33.7); MEAN PLT VOLUME 7.6 fl (7.5-11.1); MONO % 6.7 % (3.8-10.2); NEUT % 72.3 % (42.8-82.8); PLATELET COUNT 199 K/MM3 (134-434); RBC 4.33 M/mm3 (3.60-5.2); RDW 14.6 % (11.6-15.6); WHITE BLOOD COUNT 3.9 K/mm3 (4.0-10.0)
[2017-07-08 09:50] LABS: URINE APPEARANCE SLCLOUDY; URINE BILIRUBIN NEGATIVE (<2.0 mg/dL); URINE BLOOD 2+ (NEGATIVE); URINE COLOR LTYELLOW; URINE GLUCOSE (UA) NEGATIVE (NEGATIVE); URINE KETONE NEGATIVE (NEGATIVE); URINE LEUK ESTERASE TRACE (NEGATIVE); URINE NITRITE NEGATIVE (NEGATIVE); URINE PROTEIN NEGATIVE (NEGATIVE); URINE UROBILINOGEN NEGATIVE mg/dL (0.2-1.0)
[2017-07-08 09:55] LABS: EPI CELLS RARE /HPF (FEW); URINE MUCUS FEW
--- NOTE | 2017-07-08 10:06 | EKG ---
Test Reason : Blood Pressure : / mmHG Vent. Rate : 075 BPM Atrial Rate : 075 BPM P-R Int : 122 ms QRS Dur : 104 ms QT Int : 378 ms P-R-T Axes : 066 022 017 degrees QTc Int : 422 ms SINUS RHYTHM WITH FUSION COMPLEXES INCOMPLETE RIGHT BUNDLE BRANCH BLOCK BORDERLINE ECG WHEN COMPARED WITH ECG OF 26-JUN-2017 12:51, NO SIGNIFICANT CHANGE WAS FOUND Confirmed by Chiki Mohr MD ([id number]) on 07/08/2017 10:06:11 AM Referred By: Confirmed By:Chiki Mohr MD
[2017-07-08 10:07] LABS: ALBUMIN 3.8 g/dl (3.4-5.0); ANION GAP 5 (8-16); BILIRUBIN,TOTAL 0.4 mg/dL (0.2-1.0); BLOOD UREA NITROGEN 17 mg/dL (7-18); CALCIUM 8.7 mg/dL (8.5-10.1); CHLORIDE 107 mmol/L (98-107); CO2 28 mmol/L (21-32); CREATININE 0.7 mg/dL (0.55-1.02); GLUCOSE,RANDOM 83 mg/dL (74-106); POTASSIUM 3.9 mmol/L (3.5-5.1); SGOT/AST 10 U/L (15-37); SGPT/ALT 10 U/L (12-78); SODIUM 140 mmol/L (136-145)
[2017-07-08 10:10] LABS: ALK PHOS 65 U/L (45-117)
[2017-07-08 10:46] LABS: INR 1.1 (0.82-1.09); PROTHROMBIN TIME (PATIENT) 12.4 SEC (9.98-11.88)
--- NOTE | 2017-07-08 11:59 | PDOC ---
*Physical Exam - Vital Signs Last Vital Signs Temp Pulse Resp BP Pulse Ox 98 F 86 16 106/64 98 07/08/17 08:36 07/08/17 08:36 07/08/17 08:36 07/08/17 08:36 07/08/17 09:46 - Physical Exam Comments: 07/08/17 11:53 vital signs stable Heart is regular to auscultation, no murmurs Lungs are clear Heart Score/ECG Review #1 General ECG Interpretation: Sinus Rhythm, Normal Rate (? fusion complex vc ectopic focus), Normal Intervals, No acute ischemic changes Compared to previous ECG there are: No significant change ED Treatment Course - LABORATORY CBC & Chemistry Diagram: 07/08/17 09:10 07/08/17 09:10 - ADDITIONAL ORDERS Additional order review: Laboratory Results 07/08/17 07/08/17 07/08/17 09:32 09:30 09:10 PT with INR INR D-Dimer 332 Sodium Potassium Chloride Carbon Dioxide Anion Gap BUN Creatinine Creat Clearance w eGFR Random Glucose Calcium Total Bilirubin AST ALT Alkaline Phosphatase Creatine Kinase Cancelled Troponin I Cancelled Total Protein Albumin Urine Color Urine Appearance Urine pH Ur Specific [place] Urine Protein Urine Glucose (UA) Urine Ketones Urine Blood Urine Nitrite Urine Bilirubin Urine Urobilinogen Ur Leukocyte Esterase Urine WBC (Auto) Urine RBC (Auto) Ur Epithelial Cells Urine Mucus Urine HCG, Qual Negative 07/08/17 07/08/17 07/08/17 09:10 09:10 09:10 PT with INR 12.40 H INR 1.10 D-Dimer Sodium 140 Potassium 3.9 Chloride 107 Carbon Dioxide 28 Anion Gap 5 L BUN 17 Creatinine 0.7 Creat Clearance w eGFR > 60 Random Glucose 83 Calcium 8.7 Total Bilirubin 0.4 AST 10 L ALT 10 L Alkaline Phosphatase 65 Creatine Kinase 40 Troponin I < 0.02 Total Protein 7.0 Albumin 3.8 Urine Color Ltyellow Urine Appearance Slcloudy Urine pH 7.0 Ur Specific [place] 1.019 Urine Protein Negative Urine Glucose (UA) Negative Urine Ketones Negative Urine Blood 2+ H Urine Nitrite Negative Urine Bilirubin Negative Urine Urobilinogen Negative Ur Leukocyte Esterase Trace Urine WBC (Auto) 3 Urine RBC (Auto) 11 Ur Epithelial Cells Rare Urine Mucus Few Urine HCG, Qual 07/08/17 09:10 RBC 4.33 MCV 86.0 MCHC 34.0 RDW 14.6 MPV 7.6 Neutrophils % 72.3 Lymphocytes % 19.4 D Monocytes % 6.7 Eosinophils % 1.0 Basophils % 0.6 - Medications Given in the ED: ED Medications Discontinued Medications Generic Name Dose Route Start Last Admin Trade Name Navneet PRN Reason Stop Dose Admin Ibuprofen 800 mg 07/08/17 09:08 07/08/17 09:40 Motrin - PO 07/08/17 09:09 800 mg ONCE ONE Administration Medical Decision Making - Medical Decision Making 07/08/17 11:55 Patient seen and evaluated with the nurse practitioner. I agree with the overall evaluation, assessment, and management with the following summary of visit: 36-year-old female with another ED visit for palpitations/lightheadedness/chest discomfort that has been ongoing for 4 months, specifically following a breast surgery in January. She's had several visits to the ED as well as outpatient evaluation by cardiology. Most recent ED visit involves CTA chest which was negative for PE, had 2 week Holter which showed some APCs and PVCs but otherwise sinus rhythm. Of note, she did not have any episodes of her lightheadedness and palpitations or in her Holter monitoring. Vital signs here are normal Exam is unremarkable 36-year-old female presents with presents with palpitations and arrhythmia, no red flags on history or physical exam to suggest ACS. Recently normal CTA chest , no infectious symptoms. Labs are within normal limits including troponin D-dimer is negative Chest x-ray is normal, left lower extremity Doppler is negative for DVT Discussed at length with patient, reassured. Patient should have extended Holter monitoring until experiences symptoms we'll give cardiology referral. Understands strict return criteria., *DC/Admit/Observation/Transfer Diagnosis at time of Disposition: Heart palpitations - Referrals Referrals: Joselyn Sandoval MD [Primary Care Provider] - - Patient Instructions - Post Discharge Activity
[2017-07-08 12:38] VITALS: BP 129/74; PULSE 92
--- NOTE | 2017-07-09 13:21 | EKG ---
Test Reason : Blood Pressure : / mmHG Vent. Rate : 072 BPM Atrial Rate : 072 BPM P-R Int : 128 ms QRS Dur : 110 ms QT Int : 398 ms P-R-T Axes : 057 006 007 degrees QTc Int : 435 ms NORMAL SINUS RHYTHM INCOMPLETE RIGHT BUNDLE BRANCH BLOCK BORDERLINE ECG WHEN COMPARED WITH ECG OF 08-JUL-2017 08:45, FUSION COMPLEXES ARE NO LONGER PRESENT Confirmed by CHRIST CASTANO, EDILMA ([id number]) on 07/09/2017 1:21:26 PM Referred By: Confirmed By:EDILMA POLO MD
== END 2017-07-08 12:38 | disposition home or self-care (01) ==
LOC: JER 08:27
DX: R07.89 Other chest pain (principal); R00.2 Palpitations; E06.3 Autoimmune thyroiditis; F41.9 Anxiety disorder, unspecified
CPT/HCPCS: 36415; 71046-TC-FY; 80053; 81003; 81015; 82550; 84484; 84703; 85025; 85379; 85610; 93005; 93010; 93971-TC; 99284-25

== ENCOUNTER 2017-07-13 09:00 | Emergency (ER) | payer OTHER, BC ==
[2017-07-13 09:09] VITALS: BP 114/65; PULSE 81; TEMP 98.4; BMI 21.1
--- NOTE | 2017-07-13 10:13 | PDOC ---
History of Present Illness - General History Source: Patient - History of Present Illness Presenting Symptoms: Chest Pain, Other Timing/Duration: reports: intermittent - General Chief Complaint: Chest Pain Stated Complaint: REVISIT/ CHEST PAIN Time Seen by Provider: 07/13/17 09:45 Past History - Past Medical History CVA: No COPD: No Thyroid Disease: Yes (hx Zaida) - Immunization History Immunization Up to Date: Yes - Suicide/Smoking/Psychosocial Hx Smoking History: Never smoked Have you smoked in the past 12 months: No Information on smoking cessation initiated: No Hx Alcohol Use: No Drug/Substance Use Hx: No Substance Use Type: None - Past Medical History Allergies/Adverse Reactions: Allergies Allergy/AdvReac Type Severity Reaction Status Date / Time sertraline [From Zoloft] Allergy Intermediate Difficulty Verified 07/08/17 08:36 Breathing levofloxacin [From Levaquin] Allergy Verified 07/13/17 09:08 Home Medications: Ambulatory Orders NK [No Known Home Medication] 07/13/17 Review of Systems - Review of Systems Constitutional: No: Chills, Fever Respiratory: No: Shortness of Breath Cardiac (ROS): Yes: Chest Pain, Palpitations. No: Lightheadedness, Syncope *Physical Exam - Physical Exam General Appearance: Yes: Appropriately Dressed, Apparent Distress HEENT: positive: Normal Voice Neck: positive: Supple Respiratory/Chest: positive: Lungs Clear, Normal Breath Sounds. negative: Respiratory Distress Cardiovascular: positive: Regular Rate, S1, S2 Gastrointestinal/Abdominal: positive: Soft. negative: Tender Extremity: positive: Normal Inspection. negative: Tender, Calf Tenderness Integumentary: positive: Dry, Warm Neurologic: positive: Fully Oriented, Alert, Normal Mood/Affect - Vital Signs Last Vital Signs Temp Pulse Resp BP Pulse Ox 98.4 F 81 18 114/65 100 07/13/17 09:02 07/13/17 09:02 07/13/17 09:02 07/13/17 09:02 07/13/17 09:02 - Physical Exam Comments: 07/13/17 10:31 well appearing female in NAD w/ possible depressed affect (Danish,TrippAudrey) Heart Score/ECG Review - ECG Intrepretation Comment:: 07/13/17 10:25 Twelve-lead EKG was performed and reviewed by me. There is normal sinus rhythm with a normal rate. The axis is normal. The intervals are normal. There are no ST or T wave abnormalities. Impression: Normal twelve-lead EKG (Teodoro oSlorzano) Medical Decision Making - Medical Decision Making 07/13/17 10:11 37-year-old female, history of Zaida's, no longer on medication, states her TSH have been within the limits, ?anxiety/depresssion, not on meds, here with recurrent chest and left lower extremity pain. Patient reports that for the past 1-2 months she's had recurrent chest pressure and palpitations. Has been evaluated by cards w/ EKG, ECHO and Holter monitor that revealed PVCs and PACs per pt. States M.D wanted to start her on antidepressant but that she refused. Was taking ativan in past but no longer. Current marketing programs specialist is at [facility] and states she has an appt this week. Patient has been seen in ED multiple times for chest pain and palpitation. Had negative CTA 06/26 and 05/28. TSH on 06/26 was 0.96 and rest of labs were negative. Patient also continues to complain of left ankle pain radiating to posterior aspect of left knee x > 1month. No trauma. Ultrasound 07/08/17 was negative for DVT. See exam Recurrent CP/palpitations Dx w/ PACS/PVCS on prior card w/u H/o hashimotos w/ nl TSH 06/26, not currently on meds Multiple neg CTA in ED recently Possible psych component, no SI/HI Stable w/ unremarkable exam Rpt EKG unremarkable today No further workup necessary today -Will dc to follow-up with her cards in 3 days as already scheduled LLE pain No recent trauma Appears chronic at this time Ultrasound 07/08 negative for DVT Possibly muscular -DC to take Motrin as needed and follow-up with PMD (Teodoro Solorzano) *DC/Admit/Observation/Transfer Diagnosis at time of Disposition: Atypical chest pain, Left leg pain - Discharge Dispostion Disposition: HOME Condition at time of disposition: Good - Referrals Referrals: Joselyn Sandoval MD [Primary Care Provider] - - Patient Instructions Printed Discharge Instructions: DI for Atypical Chest Pain Additional Instructions: Please follow-up with her marketing programs specialist in 3 days as already scheduled. You were given copy of your labs and prior imaging. Please take to your cardiology appointment - Post Discharge Activity - Attestations Physician Attestion: I reviewed the case with the mid-level practitioner and agree with the mid- level practitioner's assessment, diagnosis and disposition. (Ghislaine Perla)
--- NOTE | 2017-07-15 10:38 | EKG ---
Test Reason : Blood Pressure : / mmHG Vent. Rate : 078 BPM Atrial Rate : 078 BPM P-R Int : 134 ms QRS Dur : 090 ms QT Int : 380 ms P-R-T Axes : 068 -41 023 degrees QTc Int : 433 ms NORMAL SINUS RHYTHM LEFT AXIS DEVIATION ABNORMAL ECG WHEN COMPARED WITH ECG OF 08-JUL-2017 12:07, QRS AXIS SHIFTED LEFT Confirmed by MD Mingo, Parminder ([id number]) on 07/15/2017 10:37:48 AM Referred By: Confirmed By:Parminder Aguila MD
== END 2017-07-13 10:35 | disposition home or self-care (01) ==
LOC: JER 09:00
DX: R07.89 Other chest pain (principal); M79.662 Pain in left lower leg; E06.3 Autoimmune thyroiditis
CPT/HCPCS: 93005; 93010; 99282-25

== ENCOUNTER 2017-08-13 09:37 | Emergency (ER) | payer OTHER, BC ==
[2017-08-13 09:54] VITALS: BP 107/59; PULSE 81; TEMP 98.6; BMI 21.9
--- NOTE | 2017-08-13 10:53 | PDOC ---
History of Present Illness - General Chief Complaint: Back Pain Stated Complaint: BACK PAIN, SOB Time Seen by Provider: 08/13/17 09:52 History Source: Patient Exam Limitations: No Limitations - History of Present Illness Initial Comments: 08/13/17 10:52 Patient came for evaluation of 2 episodes of shortness of breath and mild palpitations that started 2 days ago, spontaneously resolved and again yesterday while on the bus. Those episodes also resolved with patient resting, and reading her phone to "try to relax". States woke up today, felt that she had some swelling behind her left leg and her elbow and was concerned. Came for evaluation for same along with these episodes yesterday. Patient has had multiple ER admissions with extensive workups with CTAs, EKGs, x-rays, and multiple episodes of lab testing. Past medical history includes Zaida's thyroiditis but patient is not currently taking thyroid 4. Has followed up with director of marketing and promotions, has cardiology testing underway including tilt testing to rule out POTS. Has seen a neurologist, natural resources manager, and has internal medicine private physician. Also has 2 different therapists one psychiatrist in one therapist to discuss anxiety. States had tried 3 different SSROs and had "bad reactions to all of them" therefore discontinued and patient changed therapist. Denies fever, earache sore throat or phlegm production with cough. Denies palpitations, chest pain. Recent change in exercise or activity, no trauma. Patient states only medication she has taken has been Tylenol or Motrin and would prefer not to take any other stronger anti-anxiolytics including benzodiazepines altering as she has 2 small children at home she cares for. Has appointment with her internal medicine doctor on of next week and city council member also next week. 08/13/17 13:23 Timing/Duration: unsure, intermittent Severity: mild, moderate Modifying Factors: improves with: medication Associated Symptoms: reports: denies symptoms. denies: fever/chills, loss of appetite, malaise Past History - Travel Traveled outside of the country in the last 30 days: No Close contact w/someone who was outside of country & ill: No - Past Medical History Allergies/Adverse Reactions: Allergies Allergy/AdvReac Type Severity Reaction Status Date / Time sertraline [From Zoloft] Allergy Intermediate Difficulty Verified 08/13/17 09:45 Breathing levofloxacin [From Levaquin] Allergy Verified 08/13/17 09:45 Home Medications: Ambulatory Orders NK [No Known Home Medication] 08/13/17 CVA: No COPD: No Disorders: (fibriods) Thyroid Disease: Yes (hx Zaida) - Immunization History Immunization Up to Date: Yes - Suicide/Smoking/Psychosocial Hx Smoking History: Never smoked Have you smoked in the past 12 months: No Hx Alcohol Use: No Drug/Substance Use Hx: No Substance Use Type: None Review of Systems - Review of Systems Able to Perform ROS?: Yes Is the patient limited Latvian proficient: Yes Constitutional: Yes: See HPI. No: Symptoms Reported, Fever, Loss of Appetite, Malaise, Night Sweats, Weakness HEENTM: Yes: See HPI. No: Symptoms Reported, Nose Congestion Respiratory: Yes: Symptoms reported, See HPI, Shortness of Breath (self- resolves) Cardiac (ROS): Yes: See HPI. No: Symptoms Reported, Chest Pain, Palpitations, Syncope ABD/GI: Yes: See HPI. No: Symptoms Reported Musculoskeletal: Yes: Symptoms Reported, See HPI, Joint Swelling, Muscle Pain Integumentary: Yes: Symptoms Reported, See HPI Neurological: Yes: Symptoms reported All Other Systems: Reviewed and Negative *Physical Exam - Vital Signs Last Vital Signs Temp Pulse Resp BP Pulse Ox 98.6 F 81 18 107/59 100 08/13/17 09:45 08/13/17 09:45 08/13/17 09:45 08/13/17 09:45 08/13/17 09:45 - Physical Exam General Appearance: Yes: Nourished, Appropriately Dressed, Apparent Distress HEENT: positive: LILLI, Normal ENT Inspection, TMs Normal, Pharynx Normal Neck: positive: Supple. negative: Tender Respiratory/Chest: positive: Lungs Clear, Normal Breath Sounds Cardiovascular: positive: Regular Rhythm Gastrointestinal/Abdominal: positive: Soft. negative: Tender Musculoskeletal: positive: Normal Inspection Extremity: positive: Normal Capillary Refill, Normal Inspection, Normal Range of Motion (obvious swelling, erythema, tenderness reproduced to either extremity. Patient points to left posterior fossa is area of swelling which does not appear to be any difference in size to the right comparison area patient is ambulatory without unsteadiness or limp, neurovascular intact) Integumentary: positive: Normal Color, Dry, Warm, Pale Neurologic: positive: in flight technician II-XII NML intact, Fully Oriented, Alert, Normal Mood/ Affect, Normal Response, Motor Strength 08/09 Medical Decision Making - Medical Decision Making 08/13/17 11:40 and came discussion given with patient regarding multiple ER visits, the number of specialists involved in her very extensive case and multiple complaints with ongoing testing. Patient admits her symptoms had resolved and was in no distress currently. With that in mind patient agrees we' ll continue following up with her multiple consults and will use ibuprofen and rest for any orthopedic complaints. Patient understands can return to emergency department for any chest pain or palpitations, any swelling or discomfort but would be well served by continuing use of private physician to orchestrate multiple consults and testing. *DC/Admit/Observation/Transfer Diagnosis at time of Disposition: SOB (shortness of breath), Anxiety - Discharge Dispostion Disposition: HOME Condition at time of disposition: Stable Decision to Admit order: No - Referrals Referrals: Joselyn Sandoval MD [Primary Care Provider] - - Patient Instructions Printed Discharge Instructions: DI for Allergic Rhinitis, DI for Anxiety -- Adult Additional Instructions: Rest, drink lots of fluids: Teas, water, soups Saltwater gargles. Consider humidifier in room at night Steamy showers/seem to face break up mucus Avoid contact with allergens, exposure to pollens, close windows on a windy day Lots of handwashing and good hygiene Continue [id number] medications for symptomatic relief- may use allergic eyedrops for itching I Continue antihistamines daily until pollen season is over; Zyrtec, Claritin, Evangelina during the daytime and Benadryl at nighttime as will make sleepy Tylenol or Motrin for fever and pain Be sure to keep all appointments with cardiology, psychiatry, pulmonology, and family practice as scheduled Followup with private physician in one to 2 days as needed Consider following up with an pad making machine operator/brick off bearer for skin testing and possible allergy shots Return to emergency department for worsened symptoms, fevers, dehydration - Post Discharge Activity
== END 2017-08-13 11:06 | disposition home or self-care (01) ==
LOC: JERFT 09:37
DX: J30.9 Allergic rhinitis, unspecified (principal); F41.9 Anxiety disorder, unspecified
CPT/HCPCS: 99281-25

== ENCOUNTER 2017-12-16 14:29 | Emergency (ER) | payer OTHER, BC ==
[2017-12-16 14:40] VITALS: BP 119/78; PULSE 78; TEMP 97.8; BMI 24.7
--- NOTE | 2017-12-16 14:43 | PDOC ---
Rapid Medical Evaluation Time Seen by Provider: 12/16/17 14:36 Medical Evaluation: Allergies Allergy/AdvReac Type Severity Reaction Status Date / Time sertraline [From Zoloft] Allergy Intermediate Difficulty Verified 09/15/17 08:59 Breathing levofloxacin [From Levaquin] Allergy Verified 09/15/17 08:59 12/16/17 14:37 Pt is a 37 y/o F who presents to the ED today for chest pain and dizziness after dropping off her son in [place] three weeks ago. Pt states she saw her doctor today for the intermittent chest pain and dizziness, and the doctor recommended she go to the ED for evaluation. Pt states that her symptoms today do not feel like the palpitations she usually gets. Pt with chest pain to the L side and it moves to the R. Exam: Amblatory, NAD Orders: labs, EKG, IV insert Pt to proceed to ED for further evaluation Discharge Disposition - Diagnosis Chest pain - Referrals - Patient Instructions - Post Discharge Activity
[2017-12-16 15:09] LABS: BASO % 0.4 % (0-2.0); EOS % 1.1 % (0-4.5); HEMATOCRIT 35.5 % (32.4-45.2); HEMOGLOBIN 11.5 GM/dL (10.7-15.3); LYMPH % 20.8 % (8-40); MCH 24.9 pg (25.7-33.7); MCHC 32.5 g/dl (32.0-36.0); MEAN CELL VOLUME 76.7 fl (80-96); MEAN PLT VOLUME 7.8 fl (7.5-11.1); MONO % 8.5 % (3.8-10.2); NEUT % 69.2 % (42.8-82.8); PLATELET COUNT 225 K/MM3 (134-434); RBC 4.62 M/mm3 (3.60-5.2); WHITE BLOOD COUNT 5.6 K/mm3 (4.0-10.0)
[2017-12-16 15:22] LABS: INR 1.06 (0.83-1.09)
[2017-12-16 15:26] LABS: HCG,QUALITATIVE URINE Negative
--- NOTE | 2017-12-16 15:37 | PDOC ---
History of Present Illness - General History Source: Patient Exam Limitations: No Limitations - History of Present Illness Initial Comments: 12/16/17 15:39 The patient is a 37 year old female, with a significant past medical history of hansel's, thyroiditis, and anxiety/depression who presents to the emergency department with c/o two weeks with intermittent pleuritic chest pain which varies in location with new onset of palpitations today and dyspnea on exertion and orthopnea for 2 days. She states she went to her PCP today where she had a normal EKG and advised to rest at home. She states she went home and was watching a movie when she developed palpitations. She completed 2 weeks of zoloft for depression and reports her doctor increased the zoloft dose today. She states she drove her child to [place] 3 weeks ago. She states she had a normal stress test a few months ago. PE study negative in June 2017. Echo normal in July 2017. RUE Venous Doppler in September 2017 was negative. Endocrine evaluation 2 weeks ago was normal. She denies caffeine increase, substance abuse or use of diet supplements, The patient denies headache. The patient denies fever, chills, nausea, vomit, diarrhea and constipation. The patient denies dysuria, frequency, urgency and hematuria. Allergies: NKDA Social history: Pt denies toxic habits PCP - Dr. Joselyn Le <Bridget Avila - Last Filed: 12/16/17 15:39> <Fareed Rachel - Last Filed: 12/16/17 16:41> <Joann Murillo - Last Filed: 12/16/17 18:55> - General Chief Complaint: Chest Pain Stated Complaint: SOB, CHEST PAIN, PALPITATIONS Time Seen by Provider: 12/16/17 14:36 Past History <Bridget Avila - Last Filed: 12/16/17 15:39> - Past Medical History CVA: No COPD: No Disorders: Yes (fibriods) Thyroid Disease: Yes (hx Hansel) - Immunization History Immunization Up to Date: Yes - Suicide/Smoking/Psychosocial Hx Smoking History: Never smoked Have you smoked in the past 12 months: No Hx Alcohol Use: No Drug/Substance Use Hx: No Substance Use Type: None <Fareed Rachel - Last Filed: 12/16/17 16:41> <Joann Murilloh - Last Filed: 12/16/17 18:55> - Past Medical History Allergies/Adverse Reactions: Allergies Allergy/AdvReac Type Severity Reaction Status Date / Time levofloxacin [From Levaquin] Allergy Verified 12/16/17 14:37 Home Medications: Ambulatory Orders NK [No Known Home Medication] 08/13/17 Review of Systems - Review of Systems Able to Perform ROS?: Yes <Bridget Avila - Last Filed: 12/16/17 15:39> - Review of Systems Constitutional: No: Chills, Fever Respiratory: Yes: Shortness of Breath. No: Cough Cardiac (ROS): Yes: Chest Pain. No: Edema, Syncope ABD/GI: No: Nausea, Vomiting All Other Systems: Reviewed and Negative <Fareed Rachel - Last Filed: 12/16/17 16:41> *Physical Exam - Vital Signs Last Vital Signs Temp Pulse Resp BP Pulse Ox 97.8 F 78 19 119/78 100 12/16/17 14:37 12/16/17 14:37 12/16/17 14:37 12/16/17 14:37 12/16/17 15:29 - Physical Exam Comments: 12/16/17 15:40 GENERAL: (+) slightly anxious appearing. The patient is awake, alert, and fully oriented, in no acute distress. HEAD: Normal with no signs of trauma. EYES: Pupils equal, round and reactive to light, extraocular movements intact, sclera anicteric, conjunctiva clear with no pallor. ENT: Ears normal, nares patent, oropharynx clear without exudates. Moist mucous membranes. NECK: Normal range of motion, supple without lymphadenopathy, JVD, or masses. LUNGS: Breath sounds equal, clear to auscultation bilaterally. No wheeze/ crackles. HEART: Regular rate and rhythm, normal S1 and S2 without murmur or rub. ABDOMEN: Soft/nontender/nondistended. BS wnl. No guarding or rebound. No palpable masses. No hepatosplenomegaly. EXTREMITIES: Normal range of motion, no edema. No clubbing or cyanosis. No cords, erythema, or tenderness. NEUROLOGICAL: Cranial nerves II through XII grossly intact. Normal speech, normal gait. PSYCH: Normal mood, normal affect. SKIN: Warm, Dry, normal turgor, no rashes or lesions noted. <Bridget Avila - Last Filed: 12/16/17 15:39> - Vital Signs Last Vital Signs Temp Pulse Resp BP Pulse Ox 97.8 F 78 19 119/78 100 12/16/17 14:37 12/16/17 14:37 12/16/17 14:37 12/16/17 14:37 12/16/17 14:37 <Fareed Rachel - Last Filed: 12/16/17 16:41> - Vital Signs Last Vital Signs Temp Pulse Resp BP Pulse Ox 97.8 F 78 19 119/78 100 12/16/17 14:37 12/16/17 14:37 12/16/17 14:37 12/16/17 14:37 12/16/17 15:29 <Joann Murillo - Last Filed: 12/16/17 18:55> Heart Score/ECG Review #1 ECG reviewed & interpreted by me at: 14:39 General ECG Interpretation: Sinus Rhythm, Normal Rate (70), Normal Intervals ( qtc 421), No acute ischemic changes Compared to previous ECG there are: No significant change <Fareed Rachel - Last Filed: 12/16/17 16:41> ED Treatment Course - LABORATORY CBC & Chemistry Diagram: 12/16/17 14:40 12/16/17 14:40 - ADDITIONAL ORDERS Additional order review: Laboratory Results 12/16/17 12/16/17 14:50 14:40 PT with INR 12.00 INR 1.06 Urine HCG, Qual Negative 12/16/17 14:40 RBC 4.62 MCV 76.7 L MCHC 32.5 RDW 15.0 D MPV 7.8 Neutrophils % 69.2 Lymphocytes % 20.8 Monocytes % 8.5 Eosinophils % 1.1 Basophils % 0.4 <Bridget Avila - Last Filed: 12/16/17 15:39> - LABORATORY CBC & Chemistry Diagram: 12/16/17 14:40 12/16/17 14:40 - ADDITIONAL ORDERS Additional order review: Laboratory Results 12/16/17 12/16/17 14:50 14:40 PT with INR 12.00 INR 1.06 Urine HCG, Qual Negative 12/16/17 14:40 RBC 4.62 MCV 76.7 L MCHC 32.5 RDW 15.0 D MPV 7.8 Neutrophils % 69.2 Lymphocytes % 20.8 Monocytes % 8.5 Eosinophils % 1.1 Basophils % 0.4 <Fareed Rachel - Last Filed: 12/16/17 16:41> - LABORATORY CBC & Chemistry Diagram: 12/16/17 14:40 12/16/17 14:40 - ADDITIONAL ORDERS Additional order review: Laboratory Results 12/16/17 12/16/17 12/16/17 15:36 14:50 14:40 PT with INR INR D-Dimer 685 H Sodium Potassium Chloride Carbon Dioxide Anion Gap BUN Creatinine Creat Clearance w eGFR Random Glucose Calcium Magnesium 2.2 Total Bilirubin AST ALT Alkaline Phosphatase Creatine Kinase Troponin I Total Protein Albumin Urine Color Ltyellow Urine Appearance Clear Urine pH 8.0 Ur Specific [place] 1.010 Urine Protein Negative Urine Glucose (UA) Negative Urine Ketones Negative Urine Blood 3+ H Urine Nitrite Negative Urine Bilirubin Negative Urine Urobilinogen Negative Ur Leukocyte Esterase Negative Urine WBC (Auto) <1 Urine RBC (Auto) 255 Ur Epithelial Cells Rare Urine Mucus Rare Urine HCG, Qual Negative 12/16/17 12/16/17 12/16/17 14:40 14:40 14:40 PT with INR 12.00 INR 1.06 D-Dimer Sodium 138 Potassium 3.8 Chloride 105 Carbon Dioxide 25 Anion Gap 8 BUN 14 Creatinine 0.7 Creat Clearance w eGFR > 60 Random Glucose 88 Calcium 9.0 Magnesium Total Bilirubin 0.2 AST 13 L ALT 11 L Alkaline Phosphatase 67 Creatine Kinase 69 Troponin I < 0.02 Total Protein 7.4 Albumin 4.1 Urine Color Urine Appearance Urine pH Ur Specific [place] Urine Protein Urine Glucose (UA) Urine Ketones Urine Blood Urine Nitrite Urine Bilirubin Urine Urobilinogen Ur Leukocyte Esterase Urine WBC (Auto) Urine RBC (Auto) Ur Epithelial Cells Urine Mucus Urine HCG, Qual 12/16/17 14:40 RBC 4.62 MCV 76.7 L MCHC 32.5 RDW 15.0 D MPV 7.8 Neutrophils % 69.2 Lymphocytes % 20.8 Monocytes % 8.5 Eosinophils % 1.1 Basophils % 0.4 - RADIOLOGY Radiology Studies Ordered: Category Date Time Status CHEST CTA [CT] Stat CT Scan 12/16/17 17:48 Completed <Joann Murillo - Last Filed: 12/16/17 18:55> Medical Decision Making - Medical Decision Making 12/16/17 15:33 37-year-old female with 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 Patient symptoms began about 3 weeks ago with scattered pleuritic precordial chest pain described as sharp, very localized, and transient in nature. Patient has been evaluated several times for similar presentations, PE protocol chest CT, echocardiogram, cardiac evaluation have all been within normal limits and this institution. The patient had a stress test with [facility] in the last couple of months that was normal, she had a normal visit with her chair and couch maker 2 weeks ago. She admits to having depression, started Zoloft 2 weeks ago. Denies history of anxiety or panic attacks, her Zoloft dose was increased by her PCP today. Vital signs normal Exam is normal 37-year-old female with atypical chest complaints, acute on chronic per multiple visits in this emergency department. She has no risk factors for ACS, she did have recent travel but her presentation is otherwise atypical for PE. Suspect this is likely her underlying depression/anxiety, particularly in light of the recent normal endocrine visit and stress test. Check labs including d-dimer EKG and chest x-ray Reassurance, disposition accordingly 12/16/17 16:41 Labs are within normal limits, troponin negative, d-dimer pending. Chest x-ray, on my preliminary review, shows no acute pathology. Follow-up d-dimer, discharge with PCP follow-up if negative. <Fareed Rachel - Last Filed: 12/16/17 16:41> *DC/Admit/Observation/Transfer - Attestations Scribe Attestion: 12/16/17 15:40 Documentation prepared by Bridget Avila, acting as medical case worker for Fareed Rachel MD <Bridget Avila - Last Filed: 12/16/17 15:39> <Fareed Rachel - Last Filed: 12/16/17 16:41> <Joann Murillo - Last Filed: 12/16/17 18:55> Diagnosis at time of Disposition: Atypical chest pain - Discharge Dispostion Disposition: HOME Condition at time of disposition: Stable - Referrals Referrals: Joselyn Sandoval MD [Primary Care Provider] - - Patient Instructions Printed Discharge Instructions: DI for Atypical Chest Pain Additional Instructions: Activity as tolerated. Stay hydrated. Tylenol 1000 mg every 8 hours and/or ibuprofen 600 mg every 8 hours as needed for pain. Blood tests, an EKG, and a Chest xray showed no acute abnormalities today. Continue your medications as previously prescribed by your physician, including the increased dose of Zoloft. You should follow up with your primary doctor as soon as possible regarding today's emergency department visit. Return to the emergency department for any new or concerning symptoms, particularly persistent or worsening pain or trouble breathing, fevers or cough , persistent palpitations.
[2017-12-16 15:50] LABS: URINE APPEARANCE CLEAR; URINE BILIRUBIN NEGATIVE (<2.0 mg/dL); URINE COLOR LTYELLOW; URINE GLUCOSE (UA) NEGATIVE (NEGATIVE); URINE KETONE NEGATIVE (NEGATIVE); URINE LEUK ESTERASE NEGATIVE (NEGATIVE); URINE NITRITE NEGATIVE (NEGATIVE); URINE PROTEIN NEGATIVE (NEGATIVE); URINE UROBILINOGEN NEGATIVE mg/dL (0.2-1.0)
[2017-12-16 15:57] LABS: CHLORIDE 105 mmol/L (98-107); POTASSIUM 3.8 mmol/L (3.5-5.1); SODIUM 138 mmol/L (136-145)
[2017-12-16 16:04] LABS: ALBUMIN 4.1 g/dl (3.4-5.0); ALK PHOS 67 U/L (45-117); ANION GAP 8 MMOL/L (8-16); BILIRUBIN,TOTAL 0.2 mg/dL (0.2-1.0); BLOOD UREA NITROGEN 14 mg/dL (7-18); CO2 25 mmol/L (21-32); CREATININE 0.7 mg/dL (0.55-1.02); GLUCOSE,RANDOM 88 mg/dL (74-106); SGOT/AST 13 U/L (15-37); SGPT/ALT 11 U/L (12-78); TOT PROT 7.4 g/dl (6.4-8.2)
[2017-12-16 16:37] LABS: EPI CELLS RARE /HPF (FEW); URINE MUCUS RARE
--- NOTE | 2017-12-17 11:49 | EKG ---
Test Reason : Blood Pressure : / mmHG Vent. Rate : 070 BPM Atrial Rate : 070 BPM P-R Int : 140 ms QRS Dur : 090 ms QT Int : 390 ms P-R-T Axes : 057 -37 041 degrees QTc Int : 421 ms NORMAL SINUS RHYTHM LEFT AXIS DEVIATION ABNORMAL ECG WHEN COMPARED WITH ECG OF 18-JUL-2017 09:53, NO SIGNIFICANT CHANGE WAS FOUND Confirmed by CHRIST CASTANO, EDILMA ([id number]) on 12/17/2017 11:48:38 AM Referred By: Confirmed By:EDILMA POLO MD
== END 2017-12-16 19:08 | disposition home or self-care (01) ==
LOC: JER 14:29
DX: R07.89 Other chest pain (principal); E06.3 Autoimmune thyroiditis; F41.9 Anxiety disorder, unspecified
CPT/HCPCS: 36415; 71045-TC-FY; 71275-TC; 80053; 81003; 81015; 82550; 83735; 84484; 84703; 85025; 85379; 85610; 87086; 93005; 93010; 99283-25